=== PATIENT | male | born 1990 | race Caucasian/White ===

== ENCOUNTER 2017-05-19 10:57 | Inpatient (IN) | payer MEDICARE, OTHER ==
[~2017-05-19] VITALS: Ht 180.3 cm; Wt 113.4 kg
[2017-05-19] VITALS (8 sets, daily range): BP systolic 117–127; BP diastolic 69–83
--- NOTE | 2017-05-19 11:44 | Emergency Room Report ---
History of Present Illness General Chief Complaint: Behavioral Complaint Source: Patient Present Illness HPI Patient is a 26-year-old male who presents after onto her hallucinations. Patient reports having prior history of schizophrenia. He reports recently having increased auditory hallucinations which tell him to harm other people as well as himself. Patient denies drug use. He states that he had recently been hospitalized. He does not take any medications currently. He denies any current medical complaints. Allergies: Coded Allergies: No Known Allergies (Unverified , 05/19/17) Patient History Reviewed Nursing Documentation: PMH: Agreed, PSxH: Agreed Nursing Documentation-PMH Past Medical History: No History, Except For History Of Psychiatric Problem: Yes - schizophrenia. Suicidal Ideation. Depression Review of Systems All Other Systems: negative except mentioned in HPI Physical Exam Vital Signs Date Time Temp Pulse Resp B/P (MAP) Pulse Ox O2 Delivery O2 Flow Rate FiO2 05/19/17 11:20 97.7 81 16 121/72 96 Room Air Sp02 EP Interpretation: reviewed, normal General Appearance: alert/responsive, no apparent distress, GCS 15, non-toxic Head: atraumatic Eyes: PERRL, lids + conjunctiva normal ENT: hearing intact, no angioedema Neck: supple/symm/no masses, no meningismus Respiratory: effort normal, no wheezing, chest symmetrical Cardiovascular: regular rate, rhythm, no edema Cardiovascular #2: 2+ carotid (R), 2+ carotid (L), 2+ dorsalis pedis (R), 2+ dorsalis pedis (L) Gastrointestinal: non-tender, no mass, non-distended, no rebound/guarding, normal bowel sounds Musculoskeletal: gait & station normal, strength & tone normal, normal ROM, non -tender Neurologic: normal inspection, CN II-XII intact, oriented x3, sensory intact, normal speech Skin: no rash, well hydrated Lymphatic: normal inspection Medical Decision Making Diagnostic Impression: Primary Impression: Abnormal LFTs Additional Impression: Psychosis ER Course Patient presented for hearing voices. Differential diagnoses include substance abuse, psychosis, bipolar disorder, depression, malingering. Patient was noted to have a negative drug screen and abnormal liver function tests. The patient was discussed with Dr. Clark for psychiatric consult. Dr. Muller was contacted for inpatient management due to complexity of medical condition and abnormal liver tests. Labs Test 05/19/17 12:00 White Blood Count 7.5 K/UL (4.8-10.8) Red Blood Count 5.87 M/UL (4.70-6.10) Hemoglobin 17.8 G/DL (14.2-18.0) Hematocrit 51.3 % (42.0-52.0) Mean Corpuscular Volume 87 FL (80-99) Mean Corpuscular Hemoglobin 30.3 PG (27.0-31.0) Mean Corpuscular Hemoglobin Concent 34.7 G/DL (32.0-36.0) Red Cell Distribution Width 10.7 % (11.6-14.8) Platelet Count 238 K/UL (150-450) Mean Platelet Volume 8.3 FL (6.5-10.1) Neutrophils (%) (Auto) 53.9 % (45.0-75.0) Lymphocytes (%) (Auto) 29.2 % (20.0-45.0) Monocytes (%) (Auto) 10.9 % (1.0-10.0) Eosinophils (%) (Auto) 4.5 % (0.0-3.0) Basophils (%) (Auto) 1.6 % (0.0-2.0) Sodium Level 138 MMOL/L (136-145) Potassium Level 3.6 MMOL/L (3.5-5.1) Chloride Level 103 MMOL/L (98-107) Carbon Dioxide Level 30 MMOL/L (21-32) Anion Gap 5 mmol/L (5-15) Blood Urea Nitrogen 12 mg/dL (7-18) Creatinine 0.9 MG/DL (0.55-1.30) Estimat Glomerular Filtration Rate > 60 mL/min (>60) Glucose Level 90 MG/DL (74-106) Calcium Level 9.2 MG/DL (8.5-10.1) Total Bilirubin 0.7 MG/DL (0.2-1.0) Aspartate Amino Transf (AST/SGOT) 53 U/L (15-37) Alanine Aminotransferase (ALT/SGPT) 191 U/L (12-78) Alkaline Phosphatase 100 U/L (46-116) Total Protein 7.8 G/DL (6.4-8.2) Albumin 4.0 G/DL (3.4-5.0) Globulin 3.8 g/dL Albumin/Globulin Ratio 1.1 (1.0-2.7) Salicylates Level 1.4 ug/mL (2.8-20) Urine Opiates Screen Negative (NEGATIVE) Acetaminophen Level < 2 MCG/ML (10-30) Urine Barbiturates Screen Negative (NEGATIVE) Phencyclidine (PCP) Screen Negative (NEGATIVE) Urine Amphetamines Screen Negative (NEGATIVE) Urine Benzodiazepines Screen Negative (NEGATIVE) Urine Cocaine Screen Negative (NEGATIVE) Urine Marijuana (THC) Screen Negative (NEGATIVE) Serum Alcohol < 3 mg/dL Last Vital Signs Date Time Temp Pulse Resp B/P (MAP) Pulse Ox O2 Delivery O2 Flow Rate FiO2 05/19/17 11:27 97.7 81 16 121/72 96 Room Air Status: unchanged Disposition: ADMITTED INPATIENT Condition: Serious Scripts No Active Prescriptions or Reported Meds Referrals: NOT CHOSEN IPA/,REFERRING (PCP) Julio Cleveland May 19, 2017 11:44
[2017-05-19] MEDS ORDERED: Haloperidol 5mg/ml Inj IM ONE (11:45)
[2017-05-19 12:55] LABS: BASOPHILS % (AUTO) 1.6 % (0.0-2.0); EOSINOPHILS % (AUTO) 4.5 % (0.0-3.0); HEMATOCRIT 51.3 % (42.0-52.0); HEMOGLOBIN 17.8 G/DL (14.2-18.0); LYMPHOCYTES % (AUTO) 29.2 % (20.0-45.0); MEAN CORPUSCULAR VOLUME 87 FL (80-99); MONOCYTES % (AUTO) 10.9 % (1.0-10.0); NEUTROPHILS % (AUTO) 53.9 % (45.0-75.0); PLATELET COUNT 238 K/UL (150-450); RED BLOOD COUNT 5.87 M/UL (4.70-6.10); RED CELL DISTRIBUTION WIDTH 10.7 % (11.6-14.8); WHITE BLOOD COUNT 7.5 K/UL (4.8-10.8)
[2017-05-19 13:11] LABS: BLOOD UREA NITROGEN 12 mg/dL (7-18); CHLORIDE 103 MMOL/L (98-107); POTASSIUM 3.6 MMOL/L (3.5-5.1); SODIUM 138 MMOL/L (136-145)
[2017-05-19 13:14] LABS: ALANINE AMINOTRANSFERASE 191 U/L (12-78); ALBUMIN/GLOBULIN RATIO 1.1 (1.0-2.7); ALKALINE PHOSPHATASE 100 U/L (46-116); ANION GAP 5 mmol/L (5-15); ASPARTATE AMINO TRANSFERASE 53 U/L (15-37); BILIRUBIN,TOTAL 0.7 MG/DL (0.2-1.0); CALCIUM 9.2 MG/DL (8.5-10.1); CARBON DIOXIDE 30 MMOL/L (21-32); CREATININE 0.9 MG/DL (0.55-1.30)
[2017-05-19] MEDS ORDERED: Mylanta II UD 30ml ORAL PRN (14:30)
[2017-05-19] MEDS ORDERED: LORazepam Inj 2mg/ml 1ml IV PRN (14:30)
[2017-05-19] MEDS ORDERED: Morphine Sulfate 2mg/ml Inj IVP PRN (14:30)
[2017-05-19] MEDS ORDERED: Miralax 17gm pkt ORAL PRN (14:30)
[2017-05-19] MEDS ORDERED: Zolpidem 5mg tab ORAL PRN (14:30)
[2017-05-20 04:00] VITALS: BP 123/68
[2017-05-20 08:05] VITALS: BP 111/65
[2017-05-20 09:08] LABS: BASOPHILS % (AUTO) 1.8 % (0.0-2.0); EOSINOPHILS % (AUTO) 7.2 % (0.0-3.0); HEMATOCRIT 47.5 % (42.0-52.0); HEMOGLOBIN 16.8 G/DL (14.2-18.0); LYMPHOCYTES % (AUTO) 31.3 % (20.0-45.0); MEAN CORPUSCULAR VOLUME 87 FL (80-99); MONOCYTES % (AUTO) 8.4 % (1.0-10.0); NEUTROPHILS % (AUTO) 51.3 % (45.0-75.0); PLATELET COUNT 215 K/UL (150-450); RED BLOOD COUNT 5.44 M/UL (4.70-6.10); RED CELL DISTRIBUTION WIDTH 10.7 % (11.6-14.8); WHITE BLOOD COUNT 4.8 K/UL (4.8-10.8)
--- NOTE | 2017-05-20 09:27 | History and Physical ---
History of Present Illness General Date patient seen: May 20, 2017 Reason for Hospitalization: Behavioral Complaint Present Illness HPI 26-year-old male who presents with CC of worsening hallucinations. Patient reports having prior history of schizophrenia. He reports recently having increased auditory hallucinations which tell him to harm other people as well as himself. Patient denies drug use. He states that he had recently been hospitalized. He does not take any medications currently. He denies any current medical complaints. Allergies: Coded Allergies: No Known Allergies (Unverified , 05/19/17) Medication History No Active Prescriptions or Reported Meds Patient History Healthcare decision maker Resuscitation status Full Code Advanced Directive on File No Past Medical/Surgical History Past Medical/Surgical History: (1) Psychosis Review of Systems All Other Systems: negative except mentioned in HPI Physical Exam General Appearance: WD/WN Lines, tubes and drains: peripheral, central line HEENT: normocephalic, anicteric Neck: non-tender, normal alignment Respiratory/Chest: chest wall non-tender, lungs clear Breasts: no masses Cardiovascular/Chest: normal rate Abdomen: normal bowel sounds, non tender Genitourinary/Rectal: normal genital exam Extremities: normal range of motion Last 24 Hour Vital Signs Date Time Temp Pulse Resp B/P (MAP) Pulse Ox O2 Delivery O2 Flow Rate FiO2 05/20/17 08:05 97.2 80 18 111/65 96 Room Air 05/20/17 04:00 97.9 70 17 123/68 95 05/19/17 20:00 98.1 82 17 119/82 97 Room Air 05/19/17 19:48 97.8 87 16 121/83 99 Room Air 05/19/17 19:31 97.8 87 16 121/83 99 Room Air 05/19/17 18:00 76 16 121/77 99 Room Air 05/19/17 16:14 80 16 117/78 96 Room Air 05/19/17 15:30 82 16 117/80 96 Room Air 05/19/17 13:30 77 16 127/77 96 Room Air 05/19/17 11:27 97.7 81 16 121/72 96 Room Air 05/19/17 11:20 97.7 81 16 121/72 96 Room Air Intake and Output 05/19/17 05/20/17 19:00 07:00 Intake Total 800 ml Balance 800 ml Intake Oral 800 ml # Voids 1 Laboratory Tests Test 05/19/17 12:00 05/20/17 08:15 White Blood Count 7.5 K/UL (4.8-10.8) 4.8 K/UL (4.8-10.8) Red Blood Count 5.87 M/UL (4.70-6.10) 5.44 M/UL (4.70-6.10) Hemoglobin 17.8 G/DL (14.2-18.0) 16.8 G/DL (14.2-18.0) Hematocrit 51.3 % (42.0-52.0) 47.5 % (42.0-52.0) Mean Corpuscular Volume 87 FL (80-99) 87 FL (80-99) Mean Corpuscular Hemoglobin 30.3 PG (27.0-31.0) 31.0 PG (27.0-31.0) Mean Corpuscular Hemoglobin Concent 34.7 G/DL (32.0-36.0) 35.4 G/DL (32.0-36.0) Red Cell Distribution Width 10.7 % (11.6-14.8) L 10.7 % (11.6-14.8) L Platelet Count 238 K/UL (150-450) 215 K/UL (150-450) Mean Platelet Volume 8.3 FL (6.5-10.1) 8.2 FL (6.5-10.1) Neutrophils (%) (Auto) 53.9 % (45.0-75.0) 51.3 % (45.0-75.0) Lymphocytes (%) (Auto) 29.2 % (20.0-45.0) 31.3 % (20.0-45.0) Monocytes (%) (Auto) 10.9 % (1.0-10.0) H 8.4 % (1.0-10.0) Eosinophils (%) (Auto) 4.5 % (0.0-3.0) H 7.2 % (0.0-3.0) H Basophils (%) (Auto) 1.6 % (0.0-2.0) 1.8 % (0.0-2.0) Sodium Level 138 MMOL/L (136-145) Pending Potassium Level 3.6 MMOL/L (3.5-5.1) Pending Chloride Level 103 MMOL/L (98-107) Pending Carbon Dioxide Level 30 MMOL/L (21-32) Pending Anion Gap 5 mmol/L (5-15) Blood Urea Nitrogen 12 mg/dL (7-18) Pending Creatinine 0.9 MG/DL (0.55-1.30) Pending Estimat Glomerular Filtration Rate > 60 mL/min (>60) Pending Glucose Level 90 MG/DL (74-106) Pending Calcium Level 9.2 MG/DL (8.5-10.1) Pending Total Bilirubin 0.7 MG/DL (0.2-1.0) Pending Aspartate Amino Transf (AST/SGOT) 53 U/L (15-37) H Pending Alanine Aminotransferase (ALT/SGPT) 191 U/L (12-78) H Pending Alkaline Phosphatase 100 U/L (46-116) Pending Total Protein 7.8 G/DL (6.4-8.2) Pending Albumin 4.0 G/DL (3.4-5.0) Pending Globulin 3.8 g/dL Pending Albumin/Globulin Ratio 1.1 (1.0-2.7) Salicylates Level 1.4 ug/mL (2.8-20) L Urine Opiates Screen Negative (NEGATIVE) Acetaminophen Level < 2 MCG/ML (10-30) L Urine Barbiturates Screen Negative (NEGATIVE) Phencyclidine (PCP) Screen Negative (NEGATIVE) Urine Amphetamines Screen Negative (NEGATIVE) Urine Benzodiazepines Screen Negative (NEGATIVE) Urine Cocaine Screen Negative (NEGATIVE) Urine Marijuana (THC) Screen Negative (NEGATIVE) Serum Alcohol < 3 mg/dL Triglycerides Level Pending Cholesterol Level Pending LDL Cholesterol Pending HDL Cholesterol Pending Cholesterol/HDL Ratio Pending Thyroid Stimulating Hormone (TSH) Pending Height (Feet): 5 Height (Inches): 11.00 Weight (Pounds): 250 Medications Current Medications Medications (Trade) Dose Ordered Sig/Lauro Route PRN Reason Start Time Stop Time Status Last Admin Dose Admin Acetaminophen (Tylenol) 650 mg Q4H PRN ORAL fever 05/19/17 14:30 06/18/17 14:29 Al Hydroxide/Mg Hydroxide (Mylanta II) 30 ml Q6H PRN ORAL dyspepsia 05/19/17 14:30 06/18/17 14:29 Dextrose (Dextrose 50%) STAT PRN IV Hypoglycemia 05/19/17 14:30 06/18/17 14:29 Lorazepam (Ativan 2mg/ml 1ml) 0.5 mg Q4H PRN IV For Anxiety 05/19/17 14:30 05/26/17 14:29 Morphine Sulfate (Morphine Sulfate) 1 mg Q4H PRN IVP Moderate Pain (Pain Scale 4-6) 05/19/17 14:30 05/26/17 14:29 Ondansetron HCl (Zofran) 4 mg Q6H PRN IVP Nausea & Vomiting 05/19/17 14:30 06/18/17 14:29 Polyethylene Glycol (Miralax) 17 gm HSPRN PRN ORAL Constipation 05/19/17 14:30 06/18/17 14:29 Zolpidem Tartrate (Ambien) 5 mg HSPRN PRN ORAL Insomnia 05/19/17 14:30 05/26/17 14:29 Assessment/Plan Problem List: (1) Psychosis ICD Codes: F29 - Unspecified psychosis not due to a substance or known physiological condition SNOMED: 61624466 (2) Psychiatric care SNOMED: 78129674, 337583604 (3) Abnormal LFTs ICD Codes: R94.5 - Abnormal results of liver function studies SNOMED: 711392046 Assessment/Plan psych evaluation sitter check LFT REBA OBRIEN May 20, 2017 09:27
[2017-05-20 09:37] LABS: ALANINE AMINOTRANSFERASE 147 U/L (12-78); ALBUMIN 3.3 G/DL (3.4-5.0); ALBUMIN/GLOBULIN RATIO 0.9 (1.0-2.7); ALKALINE PHOSPHATASE 87 U/L (46-116); ANION GAP 5 mmol/L (5-15); ASPARTATE AMINO TRANSFERASE 37 U/L (15-37); BILIRUBIN,TOTAL 0.5 MG/DL (0.2-1.0); BLOOD UREA NITROGEN 12 mg/dL (7-18); CALCIUM 9.3 MG/DL (8.5-10.1); CARBON DIOXIDE 28 MMOL/L (21-32); CHLORIDE 105 MMOL/L (98-107); CHOLESTEROL 164 MG/DL (< 200); CREATININE 0.9 MG/DL (0.55-1.30); HDL CHOLESTEROL 45 MG/DL (40-60); POTASSIUM 3.8 MMOL/L (3.5-5.1); SODIUM 138 MMOL/L (136-145); TRIGLYCERIDES 84 MG/DL (30-150)
[2017-05-20 12:00] VITALS: BP 123/73
[2017-05-20 16:00] VITALS: BP 123/64
[2017-05-20] MEDS ORDERED: Haloperidol Decanoate 50mg Inj IM ONE (19:00)
[2017-05-20 20:00] VITALS: BP 126/71
--- NOTE | 2017-05-20 23:03 | Consultation ---
History of Present Illness General Date patient seen: May 19, 2017 Chief Complaint: Behavioral Complaint Present Illness HPI 26 yo male with hx of schizophrenia who came in to er for HI. the pt was endorsing AH and stated that he recently was discharged from psych without meds. the pt has hx of noncompliance.the pt was seen in er the pt was a poor historian. the pt was delusional and stated that he was Allergies: Coded Allergies: No Known Allergies (Unverified , 05/19/17) Medication History No Active Prescriptions or Reported Meds Patient History Limited by: medical condition History Provided By: Patient, PMD Healthcare decision maker Resuscitation status Full Code Advanced Directive on File No Past Medical/Surgical History Past Medical/Surgical History: (1) Psychosis (2) Abnormal LFTs (3) Psychiatric care Review of Systems Psychiatric: Reports: prior hx, anxiety, depressed feelings, emotional problems , hallucinations Physical Exam General Appearance: no apparent distress, alert, agitated Neurologic: alert, responsive, depressed affect Last 24 Hour Vital Signs Date Time Temp Pulse Resp B/P (MAP) Pulse Ox O2 Delivery O2 Flow Rate FiO2 05/20/17 20:00 97.7 78 18 126/71 97 05/20/17 16:00 98.7 74 19 123/64 97 05/20/17 16:00 97 Room Air 05/20/17 12:00 98.2 78 18 123/73 05/20/17 08:05 97.2 80 18 111/65 96 Room Air 05/20/17 04:00 97.9 70 17 123/68 95 Intake and Output 05/19/17 05/20/17 19:00 07:00 Intake Total 800 ml Balance 800 ml Intake Oral 800 ml # Voids 1 Laboratory Tests Test 05/20/17 08:15 White Blood Count 4.8 K/UL (4.8-10.8) Red Blood Count 5.44 M/UL (4.70-6.10) Hemoglobin 16.8 G/DL (14.2-18.0) Hematocrit 47.5 % (42.0-52.0) Mean Corpuscular Volume 87 FL (80-99) Mean Corpuscular Hemoglobin 31.0 PG (27.0-31.0) Mean Corpuscular Hemoglobin Concent 35.4 G/DL (32.0-36.0) Red Cell Distribution Width 10.7 % (11.6-14.8) L Platelet Count 215 K/UL (150-450) Mean Platelet Volume 8.2 FL (6.5-10.1) Neutrophils (%) (Auto) 51.3 % (45.0-75.0) Lymphocytes (%) (Auto) 31.3 % (20.0-45.0) Monocytes (%) (Auto) 8.4 % (1.0-10.0) Eosinophils (%) (Auto) 7.2 % (0.0-3.0) H Basophils (%) (Auto) 1.8 % (0.0-2.0) Sodium Level 138 MMOL/L (136-145) Potassium Level 3.8 MMOL/L (3.5-5.1) Chloride Level 105 MMOL/L (98-107) Carbon Dioxide Level 28 MMOL/L (21-32) Anion Gap 5 mmol/L (5-15) Blood Urea Nitrogen 12 mg/dL (7-18) Creatinine 0.9 MG/DL (0.55-1.30) Estimat Glomerular Filtration Rate > 60 mL/min (>60) Glucose Level 116 MG/DL (74-106) H Calcium Level 9.3 MG/DL (8.5-10.1) Total Bilirubin 0.5 MG/DL (0.2-1.0) Aspartate Amino Transf (AST/SGOT) 37 U/L (15-37) Alanine Aminotransferase (ALT/SGPT) 147 U/L (12-78) H Alkaline Phosphatase 87 U/L (46-116) Total Protein 6.9 G/DL (6.4-8.2) Albumin 3.3 G/DL (3.4-5.0) L Globulin 3.6 g/dL Albumin/Globulin Ratio 0.9 (1.0-2.7) L Triglycerides Level 84 MG/DL (30-150) Cholesterol Level 164 MG/DL (< 200) LDL Cholesterol 116 mg/dL (<100) H HDL Cholesterol 45 MG/DL (40-60) Cholesterol/HDL Ratio 3.6 (3.3-4.4) Thyroid Stimulating Hormone (TSH) 1.022 uiU/mL (0.358-3.740) Hepatitis A IgM Antibody Pending Hepatitis B Surface Antigen Pending Hepatitis B Core IgM Antibody Pending Hepatitis C Antibody Pending Height (Feet): 5 Height (Inches): 11.00 Weight (Pounds): 250 Medications Current Medications Medications (Trade) Dose Ordered Sig/Lauro Route PRN Reason Start Time Stop Time Status Last Admin Dose Admin Acetaminophen (Tylenol) 650 mg Q4H PRN ORAL fever 05/19/17 14:30 06/18/17 14:29 Al Hydroxide/Mg Hydroxide (Mylanta II) 30 ml Q6H PRN ORAL dyspepsia 05/19/17 14:30 06/18/17 14:29 Dextrose (Dextrose 50%) STAT PRN IV Hypoglycemia 05/19/17 14:30 06/18/17 14:29 Lorazepam (Ativan 2mg/ml 1ml) 0.5 mg Q4H PRN IV For Anxiety 05/19/17 14:30 05/26/17 14:29 Morphine Sulfate (Morphine Sulfate) 1 mg Q4H PRN IVP Moderate Pain (Pain Scale 4-6) 05/19/17 14:30 05/26/17 14:29 Olanzapine (ZyPREXA) 10 mg BEDTIME ORAL 05/20/17 21:00 06/19/17 20:59 05/20/17 20:19 Ondansetron HCl (Zofran) 4 mg Q6H PRN IVP Nausea & Vomiting 05/19/17 14:30 06/18/17 14:29 Polyethylene Glycol (Miralax) 17 gm HSPRN PRN ORAL Constipation 05/19/17 14:30 06/18/17 14:29 Zolpidem Tartrate (Ambien) 5 mg HSPRN PRN ORAL Insomnia 05/19/17 14:30 05/26/17 14:29 Assessment/Plan Status: unchanged Assessment/Plan schizophrenia haldo dec 100mg zyprexa 10mg qhs Darshana Clark M.D. May 20, 2017 23:03
--- NOTE | 2017-05-20 23:05 | General Progress Note ---
Assessment/Plan Status: not improved, unchanged Assessment/Plan schizophrenia delusional -cont zyprexa Subjective Date patient seen: May 20, 2017 Neurologic/Psychiatric: Reports: anxiety, depressed, emotional problems Allergies: Coded Allergies: No Known Allergies (Unverified , 05/19/17) Objective Last 24 Hour Vital Signs Date Time Temp Pulse Resp B/P (MAP) Pulse Ox O2 Delivery O2 Flow Rate FiO2 05/20/17 20:00 97.7 78 18 126/71 97 05/20/17 16:00 98.7 74 19 123/64 97 05/20/17 16:00 97 Room Air 05/20/17 12:00 98.2 78 18 123/73 05/20/17 08:05 97.2 80 18 111/65 96 Room Air 05/20/17 04:00 97.9 70 17 123/68 95 Intake and Output 05/19/17 05/20/17 19:00 07:00 Intake Total 800 ml Balance 800 ml Intake Oral 800 ml # Voids 1 Laboratory Tests 05/20/17 08:15: White Blood Count 4.8, Red Blood Count 5.44, Hemoglobin 16.8, Hematocrit 47.5, Mean Corpuscular Volume 87, Mean Corpuscular Hemoglobin 31.0, Mean Corpuscular Hemoglobin Concent 35.4, Red Cell Distribution Width 10.7L, Platelet Count 215, Mean Platelet Volume 8.2, Neutrophils (%) (Auto) 51.3, Lymphocytes (%) (Auto) 31.3, Monocytes (%) (Auto) 8.4, Eosinophils (%) (Auto) 7.2H, Basophils (%) (Auto ) 1.8, Sodium Level 138, Potassium Level 3.8, Chloride Level 105, Carbon Dioxide Level 28, Anion Gap 5, Blood Urea Nitrogen 12, Creatinine 0.9, Estimat Glomerular Filtration Rate > 60, Glucose Level 116H, Calcium Level 9.3, Total Bilirubin 0.5, Aspartate Amino Transf (AST/SGOT) 37, Alanine Aminotransferase ( ALT/SGPT) 147H, Alkaline Phosphatase 87, Total Protein 6.9, Albumin 3.3L, Globulin 3.6, Albumin/Globulin Ratio 0.9L, Triglycerides Level 84, Cholesterol Level 164, LDL Cholesterol 116H, HDL Cholesterol 45, Cholesterol/HDL Ratio 3.6, Thyroid Stimulating Hormone (TSH) 1.022, Hepatitis A IgM Antibody [Pending], Hepatitis B Surface Antigen [Pending], Hepatitis B Core IgM Antibody [Pending], Hepatitis C Antibody [Pending] Height (Feet): 5 Height (Inches): 11.00 Weight (Pounds): 250 General Appearance: no apparent distress, alert Neurologic: depressed affect Darshana Clark M.D. May 20, 2017 23:04
[2017-05-21] VITALS: BP 126/72
[2017-05-21 04:00] VITALS: BP 126/71
[2017-05-21 05:45] LABS: HEMATOCRIT 44.7 % (42.0-52.0); HEMOGLOBIN 15.9 G/DL (14.2-18.0); LYMPHOCYTES % (AUTO) 38.2 % (20.0-45.0); MEAN CORPUSCULAR VOLUME 88 FL (80-99); MONOCYTES % (AUTO) 10.3 % (1.0-10.0); NEUTROPHILS % (AUTO) 41.4 % (45.0-75.0); PLATELET COUNT 204 K/UL (150-450); RED BLOOD COUNT 5.09 M/UL (4.70-6.10); RED CELL DISTRIBUTION WIDTH 10.8 % (11.6-14.8); WHITE BLOOD COUNT 5.2 K/UL (4.8-10.8)
[2017-05-21 06:01] LABS: ALANINE AMINOTRANSFERASE 114 U/L (12-78); ALBUMIN 3.1 G/DL (3.4-5.0); ALBUMIN/GLOBULIN RATIO 0.9 (1.0-2.7); ALKALINE PHOSPHATASE 87 U/L (46-116); ANION GAP 8 mmol/L (5-15); ASPARTATE AMINO TRANSFERASE 28 U/L (15-37); BILIRUBIN,TOTAL 0.3 MG/DL (0.2-1.0); BLOOD UREA NITROGEN 16 mg/dL (7-18); CALCIUM 8.7 MG/DL (8.5-10.1); CARBON DIOXIDE 27 MMOL/L (21-32); CHLORIDE 106 MMOL/L (98-107); PHOSPHORUS 4.4 MG/DL (2.5-4.9); POTASSIUM 3.9 MMOL/L (3.5-5.1); SODIUM 141 MMOL/L (136-145)
[2017-05-21 08:00] VITALS: BP 124/72
[2017-05-21 12:00] VITALS: BP 120/69
--- NOTE | 2017-05-21 13:23 | Pulmonology Progress Note ---
Assessment/Plan Problems: (1) Psychosis (2) Psychiatric care (3) Abnormal LFTs Assessment/Plan feeling better psych evaluation appreciated. dc planning in progress. Subjective ROS Limited/Unobtainable: No Constitutional: Reports: no symptoms Respiratory: Reports: no symptoms Allergies: Coded Allergies: No Known Allergies (Unverified , 05/19/17) Objective Last 24 Hour Vital Signs Date Time Temp Pulse Resp B/P (MAP) Pulse Ox O2 Delivery O2 Flow Rate FiO2 05/21/17 12:00 98.8 74 19 120/69 96 05/21/17 08:00 97.6 69 18 124/72 97 05/21/17 04:00 98.0 73 18 126/71 96 Room Air 05/21/17 00:00 98.2 71 18 126/72 96 05/20/17 20:00 97.7 78 18 126/71 97 05/20/17 16:00 98.7 74 19 123/64 97 05/20/17 16:00 97 Room Air Intake and Output 05/20/17 05/21/17 19:00 07:00 Intake Total 1300 ml 300 ml Balance 1300 ml 300 ml Intake Oral 1300 ml 300 ml # Voids 2 2 # Bowel Movements 1 General Appearance: WD/WN HEENT: normocephalic, anicteric Respiratory/Chest: chest wall non-tender, lungs clear Cardiovascular: normal peripheral pulses, normal rate Abdomen: normal bowel sounds, soft, non tender Genitourinary: normal external genitalia Extremities: no clubbing Skin: no lesions Laboratory Tests 05/21/17 04:55: White Blood Count 5.2, Red Blood Count 5.09, Hemoglobin 15.9, Hematocrit 44.7, Mean Corpuscular Volume 88, Mean Corpuscular Hemoglobin 31.1H, Mean Corpuscular Hemoglobin Concent 35.5, Red Cell Distribution Width 10.8L, Platelet Count 204, Mean Platelet Volume 8.6, Neutrophils (%) (Auto) 41.4L, Lymphocytes (%) (Auto) 38.2, Monocytes (%) (Auto) 10.3H, Eosinophils (%) (Auto) 8.0H, Basophils (%) ( Auto) 2.0, Erythrocyte Sedimentation Rate 5, Sodium Level 141, Potassium Level 3.9, Chloride Level 106, Carbon Dioxide Level 27, Anion Gap 8, Blood Urea Nitrogen 16, Creatinine 1.0, Estimat Glomerular Filtration Rate > 60, Glucose Level 101, Calcium Level 8.7, Phosphorus Level 4.4, Magnesium Level 1.8, Total Bilirubin 0.3, Aspartate Amino Transf (AST/SGOT) 28, Alanine Aminotransferase ( ALT/SGPT) 114H, Alkaline Phosphatase 87, C-Reactive Protein, Quantitative 0.8, Total Protein 6.6, Albumin 3.1L, Globulin 3.5, Albumin/Globulin Ratio 0.9L Current Medications Medications (Trade) Dose Ordered Sig/Lauro Route PRN Reason Start Time Stop Time Status Last Admin Dose Admin Acetaminophen (Tylenol) 650 mg Q4H PRN ORAL fever 05/19/17 14:30 06/18/17 14:29 Al Hydroxide/Mg Hydroxide (Mylanta II) 30 ml Q6H PRN ORAL dyspepsia 05/19/17 14:30 06/18/17 14:29 Dextrose (Dextrose 50%) STAT PRN IV Hypoglycemia 05/19/17 14:30 06/18/17 14:29 Lorazepam (Ativan 2mg/ml 1ml) 0.5 mg Q4H PRN IV For Anxiety 05/19/17 14:30 05/26/17 14:29 Morphine Sulfate (Morphine Sulfate) 1 mg Q4H PRN IVP Moderate Pain (Pain Scale 4-6) 05/19/17 14:30 05/26/17 14:29 Olanzapine (ZyPREXA) 10 mg BEDTIME ORAL 05/20/17 21:00 06/19/17 20:59 05/20/17 20:19 Ondansetron HCl (Zofran) 4 mg Q6H PRN IVP Nausea & Vomiting 05/19/17 14:30 06/18/17 14:29 Polyethylene Glycol (Miralax) 17 gm HSPRN PRN ORAL Constipation 05/19/17 14:30 06/18/17 14:29 Zolpidem Tartrate (Ambien) 5 mg HSPRN PRN ORAL Insomnia 05/19/17 14:30 05/26/17 14:29 REBA OBRIEN May 21, 2017 13:23
[2017-05-21] MEDS ORDERED: ACETAMINOPHEN325 M1 ORAL (14:56)
[2017-05-21] MEDS ORDERED: LORAZEPAM2 MG/1 M1 IV (14:57)
[2017-05-21] MEDS ORDERED: ZYPREXA10 MG ORAL (15:01)
[2017-05-21] MEDS ORDERED: ZOFRAN 4 MG4 MG/2 ML IV (15:02)
[2017-05-21] MEDS ORDERED: MIRALAX17 G2 ORAL (15:03)
[2017-05-21] MEDS ORDERED: ZOLPIDEM TARTRAT5 MG ORAL (15:03)
[2017-05-21 15:50] VITALS: BP 125/75
--- NOTE | 2017-05-21 21:15 | Progress Note ---
DATE: 05/21/2017 SUBJECTIVE: The patient was in bed, calm, cooperative. Follows direction. Compliant with medication. Calmer today. He denied any suicidal or homicidal ideations. He stated that he wants to be discharged along with . MENTAL STATUS EXAMINATION: The patient is alert and oriented times self, place, and situation he is in. Mood is dysphoric. Affect is constricted. Congruent with mood. Thought process is concrete. Thought content, no suicidal or homicidal ideations. Positive for delusions. Insight and judgment is fair. ASSESSMENT: AXIS I: Schizophrenia. The patient is not a danger to self or others. PLAN: 1. We will continue the patient on Zyprexa 10 mg at bedtime. 2. The patient received Haldol Decanoate last night. 3. Provide the patient with supportive therapy and reality orientation. Darshana Clark M.D. DR: VADIM JOB#: [id number] CC:
--- NOTE | 2017-05-23 12:43 | Discharge Summary ---
Discharge Summary Hospital Course Date of Admission May 19, 2017 at 15:37 Date of Discharge May 21, 2017 at 17:53 Admitting Diagnosis FAILURE TO THRIVE. HPI Keyur Lockwood is a 26 year old male who was admitted on May 19, 2017 at 15: 37 for Failure To Thrive Hospital Course dc summary #[id number] Discharge Medications Continued Medications: Acetaminophen* (Acetaminophen 325MG Tablet*) 325 Mg Tablet 650 MG ORAL Q4H PRN for Fever/Headache/Mild Pain, TAB Lorazepam* (Lorazepam*) 2 Mg/1 Ml Vial 0.5 MG IV Q4H, VIAL Olanzapine* (Zyprexa*) 10 Mg Tablet 10 MG ORAL HS, #30 TAB 0 Refills Polyethylene Glycol 3350* (Miralax*) 17 Gm Powd.pack 17 GM ORAL HS, PACKET Zolpidem Tartrate* (Zolpidem Tartrate*) 5 Mg Tablet 5 MG ORAL BEDTIME PRN for Insomnia, TAB 0 Refills Discharge Condition Upon Discharge: stable Discharge Disposition Patient was discharged to Psychiatric Facility (65) Discharge Diagnoses: Discharge Instructions Discharge Instructions Special Instructions I have been assigned to complete a D/C Summary on this account. I was not involved in the patient management Lucie Easton NP ([place]) May 23, 2017 12:43
--- NOTE | 2017-05-24 04:31 | Discharge Summary 2 SIG ---
DATE OF ADMISSION: 05/19/2017 DATE OF DISCHARGE: 05/21/2017 REASON FOR ADMISSION: 26-year-old male with a history of schizophrenia, presented to the emergency department. According to the patient, he started to have recently increased auditory hallucinations, which were telling him to harm other people or himself. The patient denied drug use. He was recently hospitalized. He denied any other concurrent medical complaints. Upon evaluation, vital signs stable. No leukocytosis. Stable hemoglobin and hematocrit. Stable electrolytes and renal parameters. Elevated AST -53 and ALT -191. Bilirubin stable. Urine toxicology screen was negative. Levels of salicylate, Tylenol, and alcohol were stable. The patient was admitted with diagnosis of psychosis, abnormal LFTs, and schizophrenia. HOSPITAL COURSE: The patient was admitted. The patient was started on symptomatic treatment. Sitter provided for safety. Psychiatric evaluation was requested. LFTs were trending down. According to psychiatrist, the patient had schizophrenia, ad appeared to be delusional. However, at that time , he was not a danger to self or others. LFTs were closely monitored. Sitter was at the bedside at all times. AST down to normal. ALT down to 114. Lipid panel revealed elevated LDL- 116. The patient was counseled on low-fat and low-cholesterol diet. Venous duplex of bilateral lower extremities was negative. Hepatitis panel was negative. [facility] The patient was stable for discharge. FINAL DIAGNOSIS: 1. Psychosis 2. Abnormal LFT, 3. Schizophrenia. DISCHARGE MEDICATIONS: See medication reconciliation list. [facility]GE INSTRUCTIONS: [facility] FOLLOWUP: Follow up with medical doctor and psychiatrist at the facility. Enrique Muller M.D. I have been assigned to dictate discharge summary on this account and I was not involved in the patient's management. Lucie Rappbrynn N.P. DR: Marcio JOB#: [id number] CC: NAMITA
--- NOTE | 2017-05-30 22:08 | Diagnostic Imaging Report ---
APPROVED REPORT CPT Code: 35498 Present Symptoms Comments: R/O DVT BILATERAL: Imaging reveals a patent deep venous system bilaterally. There is no evidence of thrombus within the femoral, popliteal or tibial segments. The greater saphenous veins are also within normal limits. Doppler indicates normal spontaneous flow within these segments.
== END 2017-05-21 17:53 | DRG 885 ==
LOC: EMR 11:35 → 3E 15:37 → EDBEDREQ 15:42
DX: F20.9 Schizophrenia, unspecified (principal); F22 Delusional disorders; R94.5 Abnormal results of liver function studies; Z91.14 Patient's other noncompliance with medication regimen
CPT/HCPCS: 36415; 80053; 80061; 80307; 80329; 83735; 84100; 84443; 85025; 85651; 86140; 86705; 86709; 86803; 87340; 93970; 99285